=== PATIENT | male | born 1965 | race Caucasian/White ===

== ENCOUNTER 2025-01-17 14:22 | Inpatient (IN) | payer BC ==
[2025-01-17 14:44] VITALS: BMI 23.1
[2025-01-17] MEDS ORDERED: BISMUTH SUBSALICYLATE 524 MG/30 ML PO PRN (15:36)
[2025-01-17] MEDS ORDERED: LOPERAMIDE HCL 2 MG CAPSULE PO PRN (15:36)
[2025-01-17] MEDS ORDERED: IBUPROFEN 600 MG TABLET (FP) PO PRN (15:36)
[2025-01-17] MEDS ORDERED: MAGNESIUM HYDROX 2400MG/30ML ORAL SUSPENSION 30 ML CUP PO PRN (15:36)
[2025-01-17] MEDS ORDERED: DICYCLOMINE HCL 10 MG CAPSULE PO PRN (15:36)
[2025-01-17] MEDS ORDERED: ACETAMINOPHEN 325 MG TABLET (FP) PO PRN (15:36)
[2025-01-17] MEDS ORDERED: BENZOCAINE/MENTHOL (CHLORASEPTIC ) LOZENGE MM PRN (15:36)
[2025-01-17] MEDS ORDERED: BENZONATATE 200 MG CAPSULE PO PRN (15:36)
[2025-01-17] MEDS ORDERED: POLYETHYLENE GLYCOL (HEALTHYLAX) 3350 17 GM PACKET PO PRN (15:36)
[2025-01-17] MEDS ORDERED: MAG HYDROX/AL HYDROX/SIMETH 30 ML UNIT-DOSE CUP PO PRN (15:36)
[2025-01-17] MEDS ORDERED: guaiFENesin 600 MG TABLET.ER (FP) PO PRN (15:36)
[2025-01-17] MEDS ORDERED: IBUPROFEN 400 MG TABLET (FP) PO PRN (15:36)
[2025-01-17] MEDS ORDERED: ONDANSETRON *ODT* 4 MG TABLET SL PRN (15:36)
[2025-01-17] MEDS ORDERED: NALOXONE (NARCAN) HCL 4 MG/0.1 ML SPRAY NS PRN (15:36)
[2025-01-17] MEDS ORDERED: INSULIN (NOVOLOG) ASPART 100 UNITS/ML 10ML VIAL SQ ONE (17:23)
[2025-01-17] MEDS: INSULIN ASPART SLIDING SCALE (NOVOLOG) 1 VIAL SQ SCH (17:29)
[2025-01-17] MEDS: MELATONIN 5 MG TABLETS PO SCH (22:23)
[2025-01-17] MEDS: THIAMINE 100 MG TABLET PO SCH (22:23)
[2025-01-18] MEDS: PRENATAL VITAMINS W/ FOLIC ACID TABLET (FP) PO SCH (10:08)
[2025-01-18 11:21] LABS: MCHC 33.0 g/dl (32.3-36.5); MEAN CELL VOLUME 91.7 fl (79.0-92.2); MEAN PLT VOLUME 10.3 fl (9.4-12.4); RDW 13.0 % (12.2-16.1)
[2025-01-18 11:44] LABS: GLUCOSE,RANDOM 221 mg/dL (74-106); TOT PROT 5.7 g/dl (6.4-8.2)
[2025-01-18 11:45] LABS: CO2 24 mmol/L (21-32)
[2025-01-18 11:47] LABS: ALK PHOS 54 U/L (40-150)
[2025-01-18 11:49] LABS: SGOT/AST 18 U/L (5-34); SGPT/ALT 16 U/L (0-55)
[2025-01-18 11:50] LABS: CREATININE 0.91 mg/dL (0.55-1.3)
[2025-01-18] MEDS: GABAPENTIN 300 MG CAPSULE PO SCH (13:54)
[2025-01-18] MEDS: metFORMIN HCL 500 MG TABLET (FP) PO SCH (17:23)
[2025-01-18] MEDS: SULFAMETHOXAZOLE/TRIMETHOPRIM 800MG/160MG D.S. TABLET PO SCH (22:21)
[2025-01-19] MEDS: LISINOPRIL 20 MG TABLET PO SCH (10:32)
[2025-01-19] MEDS: INSULIN ASPART SLIDING SCALE (NOVOLOG) 1 VIAL SQ SCH (11:29)
[2025-01-19] MEDS: INSULIN GLARGINE (LANTUS) 100 UNITS/ML UNITS SQ SCH (21:59)
[2025-01-20] MEDS: METHOCARBAMOL 500 MG TABLET PO PRN (21:22)
[2025-01-20] MEDS: hydrOXYzine PAMOATE 25 MG CAPSULE (FP) PO PRN (21:22)
[2025-01-21] MEDS ORDERED: INSULIN ASPART SLIDING SCALE (NOVOLOG) 1 VIAL SQ ONE (07:59)
[2025-01-22 06:15] VITALS: RESP 16
[2025-01-22 09:03] VITALS: BP 139/80; PULSE 78; TEMP 97.4
== END 2025-01-22 11:07 | disposition other institution (70) | DRG 774 ==
LOC: YASAS 14:22 → Y3N 16:42
PROVIDERS: ADMIT Neuromusculoskeletal Medicine & OMM; ATTEND Allergy & Immunology
PROC: HZ2ZZZZ Detoxification Services for Substance Abuse Treatment (ICD-10-PCS; principal; 2025-01-17)
DX: F10.230 Alcohol dependence with withdrawal, uncomplicated (principal); F14.20 Cocaine dependence, uncomplicated; F31.9 Bipolar disorder, unspecified; I10 Essential (primary) hypertension; E78.5 Hyperlipidemia, unspecified; E11.42 Type 2 diabetes mellitus with diabetic polyneuropathy; E11.621 Type 2 diabetes mellitus with foot ulcer; L97.419 Non-pressure chronic ulcer of right heel and midfoot with unspecified severity; Z79.4 Long term (current) use of insulin; Z79.84 Long term (current) use of oral hypoglycemic drugs
CPT/HCPCS: 36415; 80053; 80307; 82962; 83036; 85027; 86780; 87811; 93005; 93010